=== PATIENT | male | born 1970 | race Caucasian/White ===

== ENCOUNTER 2017-04-06 19:17 | Emergency (ER) | payer SELFPAY ==
--- NOTE | 2017-04-06 20:22 | ED.PDOC ---
History of Present Illness - General Chief Complaint: Diabetic Complaint Stated Complaint: not seen Time Seen by Provider: 04/06/17 20:20 - History of Present Illness Allergies/Adverse Reactions: Allergies NO KNOWN ALLERGY Allergy (Unverified 01/15/14 07:48) Departure - Departure Disposition: Left Without Being Seen Departure Forms: ED Discharge - Pt. Copy, Patient Portal Self Enrollment
== END 2017-04-06 20:30 | disposition left against medical advice (07) ==
LOC: ER 19:17
DX: Z53.21 Procedure and treatment not carried out due to patient leaving prior to being seen by health care provider (principal)

== ENCOUNTER 2017-05-17 08:30 | Emergency (ER) | payer SELFPAY ==
[2017-05-17 08:48] VITALS: TEMP 97.2
[2017-05-17] MEDS: ONDANSETRON INJ 4 MG/2 ML VIAL IV ONE ×2 (09:01→10:58)
[2017-05-17] MEDS: SODIUM CHLORIDE 0.9% 1000ML 1,000 ML IVS ONE ×2 (09:01→12:43)
--- NOTE | 2017-05-17 09:02 | ED.PDOC ---
History of Present Illness - General Chief Complaint: Diabetic Complaint Stated Complaint: "HIGH" blood sugar reading Time Seen by Provider: 05/17/17 08:52 Source: patient, RN notes reviewed, Vital Signs reviewed Exam Limitations: no limitations - History of Present Illness Initial Comments: Patient comes in with c/o elevated blood sugar for the past 3 days. He uses Levimer and a Reg insulin sliding scale. Normally only needs 10 U of Reg insulin a day but recently he has been needing >100U daily and is still having difficulty getting his blood sugar under 500. He also has been having crampy abdominal pain for the past week. The pain waxes and wanes. He has chronic constipation. He has noticed over the past week he has been having difficulty getting his urine stream to start and the stream is less but no pain with urination. Finally he reports that he started vomiting bright red blood this morning. No fever, chills, MISHRA, chest pain or SOB. Timing/Duration: constant - 3 days Severity: moderate Improving Factors: medication Worsening Factors: nothing Associated Symptoms: loss of appetite, nausea/vomiting Allergies/Adverse Reactions: Allergies NO KNOWN ALLERGY Allergy (Verified 05/17/17 08:48) Home Medications: Ambulatory Orders Ergocalciferol [Vitamin D2] 2,000 unit PO WKLY 05/17/17 Fludrocortisone Acetate 0.1 mg PO DAILY 05/17/17 Fluticasone Prop 0.05% Nasal [Flonase Nasal [place]] 50 gm INH PRN 05/17/17 Gabapentin 300 mg PO TID 05/17/17 Humulin R See Protocol SUBCU PRN 05/17/17 Insulin Detemir [Levemir] 10 unit SUBCU DAILY 05/17/17 Levothyroxine Sodium [Levo-T] 200 mcg PO DAILY 05/17/17 Metoclopramide HCl 10 mg PO Q6H 05/17/17 Promethazine HCl 25 mg PO PRN 05/17/17 Review of Systems - Review of Systems Constitutional: States: no symptoms reported EENTM: States: no symptoms reported Respiratory: States: no symptoms reported Cardiology: States: no symptoms reported Gastrointestinal/Abdominal: States: see HPI, abdominal pain - in middle of abdomen, constipation, nausea, vomiting, other - hematemasis. Denies: diarrhea Genitourinary: States: see HPI, other - hesitency Musculoskeletal: States: no symptoms reported Skin: States: no symptoms reported Neurological: States: no symptoms reported Endocrine: States: see HPI All other Systems: No Change from Baseline Past Medical History (General) - Patient Medical History Hx Thyroid Disease: Yes Hx Diabetes: Yes Surgical History: appendectomy, other - Vaccination History Hx Tetanus, Diphtheria Vaccination: Yes Hx Influenza Vaccination: Yes Hx Pneumococcal Vaccination: Yes - Social History Hx Tobacco Use: No Hx Alcohol Use: No Hx Substance Use: No Hx Substance Use Treatment: No Hx Depression: No - Activities of Daily Living Hospice Agency (if applicable):: None - Female History Patient is a Female of Child Bearing Age (10 -59 yrs old): No Patient : No Family Medical History - Family History Mother Family History: Unknown Physical Exam - Physical Exam General Appearance: Alert, Anxious, No apparent distress, Well Developed, Well Groomed, Well Nourished Eye Exam: bilateral normal Neck: non-tender, full range of motion, supple, normal inspection Respiratory: chest non-tender, lungs clear, normal breath sounds, no respiratory distress, no accessory muscle use Cardiovascular/Chest: regular rate, rhythm, no edema, no gallop, no JVD, no murmur Gastrointestinal/Abdominal: soft, no organomegaly, no pulsatile mass, abnormal bowel sounds - hyperactive, tenderness - Epigastric and mid abdomen w/o guarding or rebound Extremity: normal range of motion, non-tender, normal inspection, no pedal edema Neurologic: alert, normal mood/affect, oriented x 3 Skin Exam: normal color, warm/dry Comments: Vital Signs 05/17/17 08:35 Temperature 97.2 F L Pulse Rate [ 102 H pulse ox] Respiratory 20 Rate Blood Pressure 153/97 [Left Arm] O2 Sat by Pulse 96 Oximetry Progress - Progress Progress: 05/17/17 10:17 Patient is feeling better. Pain improved. Still on first L of NS. Awaiting CT scan results. 05/17/17 14:49 Blood sugar and potassium are improved. 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 05/17/17 14:51 No vomiting while in ER - Results/Orders Results/Orders: Laboratory Tests 05/17/17 05/17/17 05/17/17 08:45 08:45 08:45 WBC 10.1 RBC 4.40 L Hgb 11.9 L Hct 37.9 L MCV 86.2 MCH 27.0 MCHC 31.4 L RDW 14.4 Plt Count 364 MPV 8.5 Absolute Neuts (auto) 7.80 H Absolute Lymphs (auto) 1.10 Absolute Monos (auto) 0.60 Absolute Eos (auto) 0.60 H Absolute Basos (auto) 0.10 Neutrophils % 77.4 Lymphocytes % 10.7 L Monocytes % 5.6 Eosinophils % 5.6 H Basophils % 0.7 Sodium 131 L Potassium 5.7 H Chloride 94 L Carbon Dioxide 25 Anion Gap 17.7 BUN 32 H Creatinine 1.26 BUN/Creatinine Ratio 25.4 H POC Glucose > 400 H* Random Glucose 646 H* Serum Osmolality 300.1 H Calcium 9.9 Total Bilirubin 0.4 AST 14 ALT 16 Alkaline Phosphatase 56 Serum Total Protein 8.0 Albumin 4.3 Globulin 3.7 H Albumin/Globulin Ratio 1.2 Amylase 49 Lipase 17 L Urine Color Urine Appearance Urine pH Ur Specific [place] Urine Protein Urine Glucose (UA) Urine Ketones Urine Blood Urine Nitrite Urine Bilirubin Urine Urobilinogen Ur Leukocyte Esterase Urine RBC Urine WBC Ur Epithelial Cells Urine Bacteria Serum Ketones Small 05/17/17 05/17/17 05/17/17 09:35 11:20 11:20 WBC 10.9 H RBC 3.93 L Hgb 10.9 L Hct 33.6 L MCV 85.3 MCH 27.7 MCHC 32.6 L RDW 14.1 Plt Count 322 MPV 8.3 Absolute Neuts (auto) 8.80 H Absolute Lymphs (auto) 1.10 Absolute Monos (auto) 0.50 Absolute Eos (auto) 0.50 H Absolute Basos (auto) 0.00 Neutrophils % 80.6 H Lymphocytes % 9.8 L Monocytes % 4.8 Eosinophils % 4.4 Basophils % 0.4 Sodium 130 L Potassium 6.2 H Chloride 97 L Carbon Dioxide 21 Anion Gap 18.2 H BUN 34 H Creatinine 1.38 H BUN/Creatinine Ratio 24.6 H POC Glucose Random Glucose 620 H* Serum Osmolality 298.2 H Calcium 8.9 Total Bilirubin AST ALT Alkaline Phosphatase Serum Total Protein Albumin Globulin Albumin/Globulin Ratio Amylase Lipase Urine Color Yellow Urine Appearance Clear Urine pH 5.5 Ur Specific [place] 1.010 Urine Protein Negative Urine Glucose (UA) >=1000 H Urine Ketones 40 H Urine Blood Trace-intact H Urine Nitrite Negative Urine Bilirubin Negative Urine Urobilinogen 0.2 Ur Leukocyte Esterase Negative Urine RBC 0 Urine WBC 0 Ur Epithelial Cells 0 Urine Bacteria 0 Serum Ketones 05/17/17 14:15 WBC RBC Hgb Hct MCV MCH MCHC RDW Plt Count MPV Absolute Neuts (auto) Absolute Lymphs (auto) Absolute Monos (auto) Absolute Eos (auto) Absolute Basos (auto) Neutrophils % Lymphocytes % Monocytes % Eosinophils % Basophils % Sodium Potassium 4.8 Chloride Carbon Dioxide Anion Gap BUN Creatinine BUN/Creatinine Ratio POC Glucose Random Glucose 373 H D Serum Osmolality Calcium Total Bilirubin AST ALT Alkaline Phosphatase Serum Total Protein Albumin Globulin Albumin/Globulin Ratio Amylase Lipase Urine Color Urine Appearance Urine pH Ur Specific [place] Urine Protein Urine Glucose (UA) Urine Ketones Urine Blood Urine Nitrite Urine Bilirubin Urine Urobilinogen Ur Leukocyte Esterase Urine RBC Urine WBC Ur Epithelial Cells Urine Bacteria Serum Ketones - EKG/XRAY/CT XRAY: abdomen - No acute findings per Radiologist. CT Ordered: Yes - Abd/Pel: No acute findings per Radiologist Departure - Departure Clinical Impression: Abdominal pain in male Diabetes mellitus Qualifiers: Diabetes mellitus type: type 1 Diabetes mellitus complication status: with hyperglycemia Qualified Code(s): E10.65 - Type 1 diabetes mellitus with hyperglycemia Time of Disposition: 14:52 Disposition: Discharge to Home or Self Care Condition: Good Departure Forms: ED Discharge - Pt. Copy, Patient Portal Self Enrollment Instructions: DI for Diabetes Type 1 -- Adult, DI for Abdominal Pain-Adult Diet: diabetic diet Activity: increase activity as tolerated Home Medications: Ambulatory Orders Ergocalciferol [Vitamin D2] 2,000 unit PO WKLY 05/17/17 Fludrocortisone Acetate 0.1 mg PO DAILY 05/17/17 Fluticasone Prop 0.05% Nasal [Flonase Nasal [place]] 50 gm INH PRN 05/17/17 Gabapentin 300 mg PO TID 05/17/17 Humulin R See Protocol SUBCU PRN 05/17/17 Insulin Detemir [Levemir] 10 unit SUBCU DAILY 05/17/17 Levothyroxine Sodium [Levo-T] 200 mcg PO DAILY 05/17/17 Metoclopramide HCl 10 mg PO Q6H 05/17/17 Promethazine HCl 25 mg PO PRN 05/17/17 Additional Instructions: Follow up with PCP this week Follow up with GI for upper endoscopy
--- NOTE | 2017-05-17 09:22 | RAD ---
EXAM DESCRIPTION: Abdomen Series CLINICAL HISTORY: abd pain w/ constipation COMPARISON: 15 January 2014 TECHNIQUE: PA chest with supine and upright views of the abdomen] FINDINGS: The lungs are clear. The heart is normal size. There is an unremarkable bowel gas pattern. There is no mass or calculus. IMPRESSION: Normal acute abdomen series Electronically signed by: Jay Sahu MD 05/17/2017 9:21 AM CDT
[2017-05-17] MEDS: INSULIN, REG.(HUMAN) 100 U/ML VIAL SUBCU ONE ×2 (09:24→12:55)
[2017-05-17] MEDS: HYDROmorphone HCL INJ 2 MG/ML VIAL IV ONE (09:39)
--- NOTE | 2017-05-17 11:05 | CT ---
EXAM DESCRIPTION: Abdomen/Pelvis w/Contrast CLINICAL HISTORY: 47 years Male, Abd pain w/ hematemasis COMPARISON: Abdominal series dated 17 May 2017, CT the abdomen dated December TECHNIQUE: Transaxial images were obtained during injector demonstrated intravenous contrast medium without oral contrast media. Sagittal and coronal reconstruction was performed.This exam was performed according to our departmental dose-optimization program, which includes automated exposure control, adjustment of the mA and/or kV according to patient size and/or use of iterative reconstruction technique. FINDINGS: Minimal right basilar atelectatic type lung disease is observed. The liver and spleen are normal in appearance. No biliary ductal dilatation is observed. The gallbladder is normal in appearance. No adrenal masses are detected. The pancreas is normal in appearance. Imaging of the kidneys reveals no evidence of hydronephrosis mass or calcification. A 1 cm in diameter cyst is observed in the lateral aspect of the left kidney. Calcific atherosclerotic changes observed in the abdominal aorta without evidence of aneurysmal dilatation. No bowel abnormality is detected. No free fluid is observed. No inguinal region abnormality is detected. No bone abnormality is seen. IMPRESSION: Small cyst is observed in the lateral aspect of the left kidney. The exam is otherwise unremarkable. Electronically signed by: Jay Sahu MD 05/17/2017 11:03 AM CDT
[2017-05-17] MEDS: CALCIUM GLUCONATE INJ 1 GM/10 ML VIAL IV ONE (13:11)
[2017-05-17] MEDS ORDERED: SODIUM CHLORIDE 0.9% 50ML 50 ML ONE (13:11)
[2017-05-17 14:23] VITALS: BP 106/72; O2SAT 98
== END 2017-05-17 15:19 | disposition home or self-care (01) ==
LOC: ER 08:30
DX: E10.65 Type 1 diabetes mellitus with hyperglycemia (principal); E07.9 Disorder of thyroid, unspecified; R10.9 Unspecified abdominal pain; Z79.4 Long term (current) use of insulin; Z79.899 Other long term (current) drug therapy
CPT/HCPCS: 36415; 74020; 74177; 80048; 80053; 81001; 82009; 82150; 82947; 82948; 83690; 84132; 85025; A4216; J1170; J2405; J7030

== ENCOUNTER 2017-07-03 22:54 | Emergency (ER) | payer SELFPAY ==
--- NOTE | 2017-07-03 23:25 | ED.PDOC ---
History of Present Illness - General Chief Complaint: GI Problem Stated Complaint: vomiting brown, thinks its blood Time Seen by Provider: 07/03/17 23:17 Source: patient Exam Limitations: no limitations Additional Information: ONSET TODAY. CAN'T QUANTIFY THE AMOUNT. BROWN IN COLOR. - History of Present Illness Severity: moderate Improving Factors: nothing Worsening Factors: nothing Associated Symptoms: other - ABDOMINAL PAIN Allergies/Adverse Reactions: Allergies NO KNOWN ALLERGY Allergy (Verified 05/17/17 08:48) Home Medications: Ambulatory Orders Ergocalciferol [Vitamin D2] 2,000 unit PO WKLY 05/17/17 Fludrocortisone Acetate 0.1 mg PO DAILY 05/17/17 Fluticasone Prop 0.05% Nasal [Flonase Nasal [place]] 50 gm INH PRN 05/17/17 Gabapentin 300 mg PO TID 05/17/17 Humulin R See Protocol SUBCU PRN 05/17/17 Insulin Detemir [Levemir] 10 unit SUBCU DAILY 05/17/17 Levothyroxine Sodium [Levo-T] 200 mcg PO DAILY 05/17/17 Metoclopramide HCl 10 mg PO Q6H 05/17/17 Dicyclomine HCl [Bentyl] 20 mg PO Q6HR PRN #20 tab 07/04/17 Ondansetron [Zofran Odt] 4 mg PO TID PRN #6 tab 07/04/17 Review of Systems - Review of Systems Constitutional: Denies: chills, fever EENTM: States: no symptoms reported Respiratory: States: no symptoms reported Cardiology: States: no symptoms reported Gastrointestinal/Abdominal: States: abdominal pain, nausea, vomiting, other - NO MELENA. Denies: diarrhea Genitourinary: States: no symptoms reported Musculoskeletal: States: no symptoms reported Skin: States: no symptoms reported Neurological: States: no symptoms reported Endocrine: States: no symptoms reported Past Medical History (General) - Patient Medical History Hx Thyroid Disease: Yes Hx Diabetes: Yes Hx Gastroesophageal Reflux: Yes Hx MRSA: Yes Surgical History: appendectomy - Vaccination History Hx Tetanus, Diphtheria Vaccination: Yes Hx Influenza Vaccination: Yes Hx Pneumococcal Vaccination: Yes Immunizations Up to Date: No - Social History Hx Tobacco Use: No Hx Alcohol Use: No Hx Substance Use: No Hx Substance Use Treatment: No Hx Depression: No - Female History Patient : No Family Medical History - Family History Mother Family History: Unknown Physical Exam - Physical Exam General Appearance: No apparent distress, Other - ACTIVELY VOMITING Eye Exam: bilateral normal - NO ICTERUS Ears, Nose, Throat: hearing grossly normal, normal ENT inspection Neck: non-tender, full range of motion, supple Respiratory: lungs clear, normal breath sounds, no respiratory distress Cardiovascular/Chest: no murmur, tachycardia Gastrointestinal/Abdominal: soft, no organomegaly, other - MILD EPIGASTRIC TTP. NO G/R Back Exam: normal inspection, no CVA tenderness Extremity: normal range of motion, normal inspection Neurologic: alert, normal mood/affect Skin Exam: normal color, warm/dry Lymphatic: no adenopathy Progress - Progress Progress: 07/04/17 00:39 STILL VOMITING. RELAPSED TODAY AFTER 5 YEARS AND USED METHAMPHETAMINE. PULSE 120. EMESIS APPEARS MORE BILIOUS THAN COFFEE GROUND. 07/04/17 00:41 07/04/17 03:07 FEELS MUCH BETTER, NO FURTHER VOMITING, ABD BENIGN - EKG/XRAY/CT XRAY: chest - FE CT: CT HEAD FE PER RADIOLOGY Departure - Departure Clinical Impression: Illicit drug use Vomiting Qualifiers: Vomiting type: bilious vomiting Nausea presence: with nausea Qualified Code(s) : R11.14 - Bilious vomiting Gastritis Qualifiers: Gastritis type: unspecified gastritis Chronicity: acute Gastritis bleeding: without bleeding Qualified Code(s): K29.00 - Acute gastritis without bleeding Time of Disposition: 03:10 Disposition: Discharge to Home or Self Care Condition: Good Departure Forms: ED Discharge - Pt. Copy, Patient Portal Self Enrollment Instructions: DI for Vomiting -- Adult Prescriptions: Dicyclomine HCl [Bentyl] 20 mg PO Q6HR PRN #20 tab PRN Reason: Abdominal Cramping Ondansetron [Zofran Odt] 4 mg PO TID PRN #6 tab PRN Reason: Nausea/Vomiting Home Medications: Ambulatory Orders Ergocalciferol [Vitamin D2] 2,000 unit PO WKLY 05/17/17 Fludrocortisone Acetate 0.1 mg PO DAILY 05/17/17 Fluticasone Prop 0.05% Nasal [Flonase Nasal [place]] 50 gm INH PRN 05/17/17 Gabapentin 300 mg PO TID 05/17/17 Humulin R See Protocol SUBCU PRN 05/17/17 Insulin Detemir [Levemir] 10 unit SUBCU DAILY 05/17/17 Levothyroxine Sodium [Levo-T] 200 mcg PO DAILY 05/17/17 Metoclopramide HCl 10 mg PO Q6H 05/17/17 Dicyclomine HCl [Bentyl] 20 mg PO Q6HR PRN #20 tab 07/04/17 Ondansetron [Zofran Odt] 4 mg PO TID PRN #6 tab 07/04/17
[2017-07-03] MEDS ORDERED: SODIUM CHLORIDE 0.9% 1000ML 1,000 ML IVS ONE (23:28)
[2017-07-03] MEDS ORDERED: ONDANSETRON INJ 4 MG/2 ML VIAL IV ONE (23:28)
[2017-07-04] MEDS ORDERED: PROMETHAZINE HCL INJ 25 MG in SODIUM CHLORIDE 0.9% 50ML 50 ML IVPB ONE (00:40)
[2017-07-04] MEDS ORDERED: SODIUM CHLORIDE 0.9% 1000ML 1,000 ML IVS ONE (00:40)
[2017-07-04] MEDS ORDERED: SODIUM CHLORIDE 0.9% 50ML 50 ML ONE (00:43)
[2017-07-04] MEDS ORDERED: PROMETHAZINE HCL INJ 25 MG/ML VIAL ONE (00:43)
[2017-07-04] MEDS ORDERED: fentaNYL CITRATE INJ 50 MCG/ML AMP IV ONE (00:53)
[2017-07-04 03:33] VITALS: BP 164/100; TEMP 98; O2SAT 97
== END 2017-07-04 03:33 | disposition home or self-care (01) ==
LOC: ER 22:54
DX: K29.00 Acute gastritis without bleeding (principal); F15.90 Other stimulant use, unspecified, uncomplicated; E11.9 Type 2 diabetes mellitus without complications; K21.9 Gastro-esophageal reflux disease without esophagitis; E07.9 Disorder of thyroid, unspecified; Z79.4 Long term (current) use of insulin; Z79.899 Other long term (current) drug therapy
CPT/HCPCS: 36415; 71010; 74010; 80053; 85025; 85610; 85730; A4216; J2405; J2550; J3010; J7030